=== PATIENT | female | born 1950 | race Caucasian/White ===

== ENCOUNTER → 2025-08-08 16:37 | Outpatient (REF) | payer MEDICARE, SELFPAY | LOC: WDC 16:37 | PROVIDERS: ATTENDING PHYSICIAN Physician Assistant | DX: E04.1 Nontoxic single thyroid nodule (principal); Z00.00 Encounter for general adult medical examination without abnormal findings; Z12.31 Encounter for screening mammogram for malignant neoplasm of breast | CPT/HCPCS: 76536; 77063; 77067 ==

== ENCOUNTER 2025-09-06 15:27 | Emergency (ER) | payer MEDICARE, SELFPAY ==
[2025-09-06 15:29] VITALS: BP 149/71
[2025-09-06 16:05] VITALS: BMI 35.2
[2025-09-06 17:18] VITALS: BP 137/85
[2025-09-06] MEDS: TYLENOL 650 MG PO (17:22)
[2025-09-06] MEDS: ADACEL 0.5 ML IM (17:24)
--- NOTE | 2025-09-06 18:04 | ED.GENMED ---
History of Present Illness
General
Chief Complaint: Fall
Time Seen by Provider: 09/06/25 16:17
History of Present Illness
History of Present Illness:
see mdm
Phy Exam
Physical Exam
Physical Exam:
see MDM
Course
Orders/Labs/Results
Orders:
Orders
09/06/25 15:34
Knee, Left 4 or More Views [CR Knee - Left 4 Or More View*] Urgent
Comment:
Reason For Exam: fall
09/06/25 17:05
Electrocardiogram (*1) Urgent
Reason for Study: Palpitations
EKG- Treatment ONCE
Acetaminophen [Tylenol] 650 mg PO NOW STA
CR Hand - Right Min 3 Views Urgent
Comment:
Reason For Exam: R hand pain after fall
CR Wrist - Right Min 3 Views Urgent
Comment:
Reason For Exam: R wrist pain after fall
09/06/25 17:06
Tetanus/Diphth/Acelpertussis [Adacel] 0.5 ml IM .ONCE ONE
Vital Signs
Initial and Last Documented VS:
Initial Vital Signs
Temp Pulse Resp BP Pulse Ox
36.8 C 79 16 149/71 98
09/06/25 15:29 09/06/25 15:29 09/06/25 15:29 09/06/25 15:29 09/06/25 15:29
Last Documented Vital Signs
Temp Pulse Resp BP Pulse Ox
36.8 C 78 18 137/85 98
09/06/25 15:29 09/06/25 17:18 09/06/25 17:18 09/06/25 17:18 09/06/25 18:05
MDM/Problems Addressed
MDM/Problems Addressed:
Note:
CHIEF COMPLAINT(S)
- Right hand pain and swelling following a fall.
- Right knee pain post-fall.
HISTORY OF PRESENT ILLNESS
The patient is a 75-year-old female with h/o HTN, hLD who presented due to right hand and left knee pain following a fall. According to the patient, the fall occurred while she was walking her dog and tripped over uneven pavement. She did not lose
consciousness and did not hit her head during the fall. The hand pain is described as moderate, with difficulty making a fist, particularly affecting the fifth digit. The knee pain is reported as moderate anterior knee, worse with flexion but able
to flex.. The patient reports having a titanium plate in her ruight knee from a previous knee replacement, which she acknowledges in relation to the current knee pain but does not express significant concern about. She was seen by EMS, who noted an
irregular heartbeat, and an electrocardiogram is planned to assess for irregular rhythms. The patient has not taken any medication for pain relief and has not received any Tylenol.
no syncope, cp, head strike, loc, vmoiting, cp, back pain, neck pain following fall
pt has not ambuated but was helped up into stretcher
no pain meds
has cut on her L index finger
tetanus outdated
PAST MEDICAL HISTORY
- Diabetes mellitus, for which the patient takes Metformin.
- Hypertension.
- Hypercholesterolemia.
CHRONIC MEDICAL CONDITIONS SIGNIFICANTLY AFFECTING CARE
- Diabetes Mellitus.
- Hypertension.
MEDICATIONS
- Metformin for diabetes.
- Medications for hypertension and hypercholesterolemia.
- Vitamin D supplement.
PHYSICAL EXAM
GENERAL: Alert , in no apparent distress
HEAD: NCAT
NECK: no midline tenderness, active ROM intact, no paraspinal muscle tenderness;
EYE: pupils equal and reactive, EOMs intact.
ENT: o/p clr, mmm. no hemotympanum
CARDIAC: Regular rate and rhythm, occasionally irregular no edema
LUNGS: Clear breath sounds bilaterally, no acute respiratory distress, no wheezes/rales/rhonchi
ABDOMEN: Soft, without focal tenderness, no r/g, no cvat
NEUROLOGICAL: Alert and oriented, no focal neuro deficits, CN intact, 5/5 strength, sensation intact
SKIN: Warm and dry, small abrasion left index finger
MUSCULOSKELETAL: Left anterior knee patellar region slight soft tissue bruising and swelling with tenderness, straight leg raise intact, seated straight leg raise normal, no laxity, can flex to 45 degrees
The rest of the left leg is normal without tenderness
Right knee status post previous knee replacement
fully flexing, hip stable
Right wrist slight swelling dorsal lateral/ulnar aspect, some pain with movement of her fingers but no finger tenderness, mild pain with flexion and extension
PSYCH: Normal and appropriate interaction.
Nursing notes reviewed and vital signs reviewed.
PROBLEM LIST
Acute:
- Right hand and knee pain post-fall.
- Possible irregular heartbeat.
Chronic:
- Diabetes Mellitus.
- Hypertension.
- Hypercholesterolemia.
PLAN
- Obtain X-rays of the right hand and wrist.
- Electrocardiogram to evaluate the reported irregular heartbeat observed by EMS.
- Administration of Tylenol for pain relief.
- Consideration of a tetanus booster since it has been a long time since her last one, especially due to the ground contact during the fall.
- Follow-up with a tea and spice supervisor as indicated based on electrocardiogram results.
DIFFERENTIAL DIAGNOSIS
The Differential Diagnosis includes, in no particular order and is not limited to:
- Soft tissue injury of the hand.
- Fracture of the hand or wrist (to be confirmed with X-ray).
- Contusion or muscle strain of the knee.
- Ligamentous injury of the knee.
- Patellar contusion.
- Tendon injury in the hand.
- Arrhythmia, such as premature atrial contractions.
- Contusion of the hand.
- Arthritis exacerbation due to trauma.
- Infection in cuts from the fall.
09/06/25 - 18:44
The patient was informed of a right triquetral fracture and a volar splint was applied as a temporary measure. The patient was advised to maintain the splint and informed it would need to be covered during showers. A follow-up appointment with an
adult specialist was recommended, with instructions to call the next day to arrange this visit. The patient also reported ongoing issues with a previously replaced knee, but no current cane or walker was available for use. Advised on knee care
with kenrick wraps and intermittent icing. The patient should consider an evaluation for the knee as ongoing discomfort was noted.
*Pulse Oximetry
SaO2: 98
Oxygen Mode of Delivery: Room air
Patient hypoxic: no (98)
*Critical Care Note
Total Time (30-74mins, 75-104mins- exclusive of procedures): Not Applicable
ED Attending Note
-
Portions of this chart may have been created with voice recognition software.� Occasional wrong word or��sound alike� substitutions may have occurred due to the inherent limitations of voice recognition software.
Discharge Plan
Departure
Patient Disposition: Home (Routine Discharge)
Date of Disposition: 09/06/25
Time of Disposition: 18:57
Patient with high blood pressure during this ER visit?: No
Condition: Fair
Covid-19: Not Applicable
Discharge Problem:
Fall, Contusion of knee, left, Fracture of triquetral bone of right wrist
Instructions: Contusion (DC), Common Wrist Injuries ED
Referrals:
Honey Gamez PA-C [Family Provider, Family Practice]
Christopher Ching MD [Active, Orthopedics] - Follow up in 1 week
Activity Restrictions/Additional Instructions:
You have a triquetral fracture of your right wrist. Need to keep the splint on and do not get it wet, you can ice on top of your wrist off-and-on, elevate so it does not swell as much over the next couple days. Please call the orthopedist for an
appointment. Take Tylenol or ibuprofen if you are allowed every 8 hours as needed for pain. You also probably bruised your knee but there is no fracture. Your x-ray shows some arthritis. You were given a tetanus shot today. Return for any
concerns
wear the kenrick wrap during the day
take it off at night
ice off and on
Interventions
Interventions:
*Risk Screen - Suicide Last Done: 09/06/25 15:29
*General Assessment Last Done: 09/06/25 16:05
*Neglect/Abuse Screening Last Done: 09/06/25 15:29
*ED- Fall Risk Assessment Last Done: 09/06/25 16:05
*ED COVID-19 Vaccine History Last Done: 09/06/25 16:05
*ED Influenza Vaccine History Last Done: 09/06/25 16:05
ED-Musculoskeletal Assessment Last Done: 09/06/25 17:18
ED- Neurological Assessment Last Done: 09/06/25 16:47
ED-Skin Assessment Last Done: 09/06/25 17:18
Discharge Date and Time
Print Language: [place]AST [place]
[2025-09-06 19:18] VITALS: BP 142/78
== END 2025-09-06 19:12 | disposition home or self-care (01) ==
LOC: EMR 15:27
PROVIDERS: EMERGENCY PHYSICIAN Student in an Organized Health Care Education/Training Program; FAMILY PHYSICIAN Physician Assistant
DX: S80.02XA Contusion of left knee, initial encounter (principal); S62.111A Displaced fracture of triquetrum [cuneiform] bone, right wrist, initial encounter for closed fracture; W18.09XA Striking against other object with subsequent fall, initial encounter; Y93.K1 Activity, walking an animal; E11.9 Type 2 diabetes mellitus without complications; I10 Essential (primary) hypertension; E78.00 Pure hypercholesterolemia, unspecified; Z23 Encounter for immunization; Z79.84 Long term (current) use of oral hypoglycemic drugs; Z96.651 Presence of right artificial knee joint
CPT/HCPCS: 99284; 29125; 90471; 73110; 73130; 73564; 90715; 93005